=== PATIENT | male | born 1970 | race Caucasian/White ===

== ENCOUNTER 2016-08-05 01:43 | Emergency (ER) | payer MEDICARE, MEDICAID ==
[2016-08-05] MEDS ORDERED: Sodium Chloride 0.9% 10 ML Syringe FLUSH PRN (01:53)
[2016-08-05] MEDS ORDERED: Sodium Chloride 0.9% 1,000 ML IV ONE (01:55)
[2016-08-05] MEDS ORDERED: Ondansetron 4 MG/2 ML SDV IVPUSH ONE (02:01)
[2016-08-05] MEDS ORDERED: Promethazine 25 MG/ML SDV IM ONE (02:02)
[2016-08-05] MEDS ORDERED: Scopolamine 1.5 MG Transdermal Patch TRDERM ONE (02:03)
--- NOTE | 2016-08-05 02:23 | EDM.PDOC ---
ED HPI GENERAL MEDICAL PROBLEM - General Chief Complaint: Neurological Problem Stated Complaint: Dizziness Time Seen by Provider: 08/05/16 01:53 Source of Information: Reports: Patient, EMS Notes Reviewed, RN, RN Notes Reviewed History Limitations: Reports: No Limitations - History of Present Illness INITIAL COMMENTS - FREE TEXT/NARRATIVE: Patient is brought to the ED at [facility] complaining of severe dizziness that started around 11pm this evening. Patient states he was lying on his sofa watching tv. When he tried to get up from the sofa, the dizziness started. He feels as thought the room is spinning. He feels slightly nauseated and has photophobia. No vomiting. No diarrhea. Patient states he thought his dizziness may be due to low blood sugar, so he consumed a tablespoon of sugar and drank a regular Sprite. Patient denies any head injury or trauma. Onset: Today Onset Date: 08/04/16 Onset Time: 23:00 Duration: Constant Location: Reports: Head - Related Data Allergies Allergy/AdvReac Type Severity Reaction Status Date / Time No Known Allergies Allergy Verified 08/05/16 01:51 Home Meds: Home Meds Apixaban [Eliquis] 5 mg PO BID 08/05/16 [History] Insulin Aspart [NovoLOG] 30 unit SUBCUT TID 08/05/16 [History] Insulin Aspart [Novolog] 6 - 16 unit SQ QID 08/05/16 [History] Insulin Detemir [Levemir] 40 units SUBCUT BEDTIME 08/05/16 [History] Lisinopril 10 mg PO DAILY 08/05/16 [History] Past Medical History Cardiovascular History: Reports: Hypertension Endocrine/Metabolic History: Reports: Diabetes, Type I, Obesity/BMI 30+ Social & Family History - Family History Family Medical History: Noncontributory - Caffeine Use Caffeine Use: Reports: Coffee, Soda - Living Situation & Occupation Living situation: Reports: Single Occupation: Disabled ED ROS GENERAL - Review of Systems Review Of Systems: See Below Constitutional: Denies: Fever, Chills, Weakness HEENT: Reports: Vertigo Respiratory: Denies: Shortness of Breath, Cough Cardiovascular: Denies: Chest Pain, Palpitations GI/Abdominal: Reports: Nausea. Denies: Abdominal Pain, Diarrhea, Vomiting Skin: Reports: No Symptoms Neurological: Reports: Dizziness. Denies: Headache, Numbness, Paresthesia, Tingling ED EXAM, NEURO - Physical Exam Exam: See Below Exam Limited By: No Limitations General Appearance: Alert, No Apparent Distress, Anxious Eye Exam: Bilateral Eye: EOMI, Normal Inspection, PERRL Ears: Normal External Exam, Normal Canal, Normal TMs Head Exam: Atraumatic, Normocephalic Neck: Supple Respiratory/Chest: No Respiratory Distress, Lungs Clear, Normal Breath Sounds Cardiovascular: Regular Rate, Rhythm GI/Abdominal: Soft, Non-Tender, Abnormal Bowel Sounds (Hyperactive) Neurological: Alert, Oriented x 3 Skin Exam: Warm, Dry, Intact, Normal Color, No Rash Course - Vital Signs Last Recorded V/S: Last Vital Signs Temp 36.9 C 08/05/16 01:51 Pulse 70 08/05/16 02:26 Resp 18 08/05/16 02:26 BP 160/86 H 08/05/16 02:26 Pulse Ox 99 08/05/16 02:26 - Orders/Labs/Meds Orders: Active Orders 24 hr Category Date Time Status EKG 12 Lead [EKG Documentation Completion] [RC] STAT Care 08/05/16 01:56 Active Head wo Cont [CT] Stat Exams 08/05/16 01:55 Taken Sodium Chloride 0.9% [Saline Flush] Med 08/05/16 01:53 Active 10 ml FLUSH ASDIRECTED PRN Peripheral IV Insertion Adult [OM.PC] Routine Oth 08/05/16 01:53 Ordered Medication Orders Sodium Chloride (Saline Flush) 10 ml FLUSH ASDIRECTED PRN PRN Reason: Keep Vein Open Last Admin: 08/05/16 02:09 Dose: 10 ml Labs: Laboratory Tests 08/05/16 08/05/16 Range/Units 02:19 02:19 WBC 5.2 (4.0-10.0) x10^3/uL RBC 5.35 (4.5-6.0) x10^6/uL Hgb 16.7 (14.0-18.0) g/dL Hct 45.3 (40.0-52.0) % MCV 84.7 (78.0-93.0) fL MCH 31.2 (26.0-32.0) pg MCHC 36.9 H (32.0-36.0) g/dL RDW Coeff of Shalonda 12.1 (10.0-15.0) % Plt Count 199 (130-400) x10^3/uL Neut % (Auto) 74.8 (50.0-80.0) % Lymph % (Auto) 14.5 L (25.0-50.0) % [place] % (Auto) 9.7 (2.0-11.0) % Eos % (Auto) 0.2 (0.0-4.0) % Baso % (Auto) 0.8 (0.2-1.2) % ESR 6 (0-16) mm/hr Sodium 136 (136-145) mmol/L Potassium 3.8 (3.5-5.1) mmol/L Chloride 99 (98-107) mmol/L Carbon Dioxide 25 (21-32) mmol/L BUN 12 (7-18) mg/dL Creatinine 1.1 (0.70-1.30) mg/dL Est Cr Clr Drug Dosing 91.12 mL/min Estimated GFR (MDRD) > 60 Glucose 414 H* (74-106) mg/dL Calcium 9.0 (8.5-10.1) mg/dL Creatine Kinase 66 (39-308) U/L Troponin I < 0.017 (<=0.056) ng/mL C-Reactive Protein < 0.2 (<=0.9) mg/dL Meds: Medications Generic Name Dose Route Start Last Admin Trade Name Dipak PRN Reason Stop Dose Admin Sodium Chloride 10 ml 08/05/16 01:53 08/05/16 02:09 Saline Flush FLUSH 10 ml ASDIRECTED PRN Administration Keep Vein Open Discontinued Medications Generic Name Dose Route Start Last Admin Trade Name Dipak PRN Reason Stop Dose Admin Sodium Chloride 1,000 mls @ 999 mls/hr 08/05/16 01:55 08/05/16 02:08 Normal Saline IV 08/05/16 02:55 999 mls/hr ONETIME ONE Administration Ondansetron HCl 4 mg 08/05/16 02:01 08/05/16 02:10 Zofran IVPUSH 08/05/16 02:02 4 mg ONETIME ONE Administration Promethazine HCl 25 mg 08/05/16 02:02 08/05/16 02:13 Phenergan IM 08/05/16 02:03 25 mg ONETIME ONE Administration Scopolamine 1.5 mg 08/05/16 02:03 08/05/16 02:22 Transderm-Scop TRDERM 08/05/16 02:04 1.5 mg ONETIME ONE Administration - Radiology Interpretation Free Text/Narrative:: CT Head: No acute findings - see scanned report in EMR CT Results Date: 08/05/16 CT Results Time: 03:39 Departure - Departure Time of Disposition: 03:49 Disposition: Home, Self-Care 01 Condition: Good Clinical Impression: Dizziness - Discharge Information Instructions: Dizziness Referrals: Stefanie Kumar NP [Primary Care Provider] - Forms: ED Department Discharge Additional Instructions: 1. Stay well hydrated and rest 2. Keep your blood sugars under control 3. Make appointment to see your Primary, you may need additional testing - Problem List Review Problem List Initiated/Reviewed/Updated: Yes - My Orders Last 24 Hours: My Active Orders 08/05/16 01:53 Sodium Chloride 0.9% [Saline Flush] 10 ml FLUSH ASDIRECTED PRN Peripheral IV Insertion Adult [OM.PC] Routine 08/05/16 01:55 Head wo Cont [CT] Stat 08/05/16 01:56 EKG 12 Lead [EKG Documentation Completion] [RC] STAT - Assessment/Plan Last 24 Hours: My Active Orders 08/05/16 01:53 Sodium Chloride 0.9% [Saline Flush] 10 ml FLUSH ASDIRECTED PRN Peripheral IV Insertion Adult [OM.PC] Routine 08/05/16 01:55 Head wo Cont [CT] Stat 08/05/16 01:56 EKG 12 Lead [EKG Documentation Completion] [RC] STAT
[2016-08-05 02:36] VITALS: BP 160/86
[2016-08-05 03:12] LABS: CHLORIDE,CL 99 mmol/L (98-107); SODIUM,NA 136 mmol/L (136-145)
== END 2016-08-05 04:12 | disposition home or self-care (01) ==
LOC: VM.ED 01:43
DX: R42 Dizziness and giddiness (principal); I10 Essential (primary) hypertension; E10.9 Type 1 diabetes mellitus without complications; E66.9 Obesity, unspecified; Z79.899 Other long term (current) drug therapy
CPT/HCPCS: 36415; 70450; 80048; 82550; 84484; 85025; 85652; 86140; 93005; 96365; 96366; 96372; 96375; 99285; A9270; J2405; J2550; J7030; J7050; 99284-GF

== ENCOUNTER 2017-10-15 06:05 | Emergency (ER) | payer MEDICARE, MEDICAID ==
[2017-10-15] MEDS ORDERED: Sodium Chloride 0.9% 10 ML Syringe FLUSH PRN (06:19)
[2017-10-15] MEDS ORDERED: Ketorolac 30 MG/ML SDV IVPUSH ONE (06:25)
[2017-10-15] MEDS: Sodium Chloride 0.9% 1,000 ML IV ONE (06:58)
[2017-10-15] MEDS: Ampicillin/Sulbactam Na 3 GM Vial IV ONE (07:07)
[2017-10-15 07:27] LABS: CHLORIDE,CL 104 mmol/L (98-107); SODIUM,NA 139 mmol/L (136-145)
[2017-10-15 07:28] LABS: ANION GAP 11.6 mmol/L (10-20)
[2017-10-15] MEDS: HYDROmorphone 1 MG/ML Syringe IVPUSH ONE (08:15)
[2017-10-15] MEDS: methylPREDNISolone Sodium Succinate 125 MG/2 ML SDV IVPUSH ONE (08:21)
[2017-10-15] MEDS: Insulin Regular, Human 100 Units/ML 3 ML Vial IVPUSH ONE (08:26)
[2017-10-15 08:30] VITALS: BP 178/98
[2017-10-15] MEDS: Iopamidol 612 MG/ML 100 ML Bottle IVPUSH ONE (08:46)
--- NOTE | 2017-10-15 10:18 | EDM.PDOC ---
ED HPI GENERAL MEDICAL PROBLEM - General Chief Complaint: ENT Problem Stated Complaint: Swollen throat, pain, difficulty swallowing Time Seen by Provider: 10/15/17 06:05 Source of Information: Reports: Patient History Limitations: Reports: No Limitations - History of Present Illness INITIAL COMMENTS - FREE TEXT/NARRATIVE: Pt. presents to ER with complaints of several day history of severe sore throat , difficulty swallowing, and since early this morning, sensation of intermittent airway compromise when lying supine. States that he has noted severe cervical lymphadenopathy. Denies any fever or chills. No chest pain or shortness of breath. Pt. states that he has taken several doses of keflex (that he hadn't finished from a pervious prescription) which has not been of any help. He denies any nausea, vomiting, or diarrhea. Complains of some headache and body aches. He has a history poorly controlled type II DM. Onset Date: 10/11/17 Location: Reports: Head, Neck Quality: Reports: Ache, Burning Severity: Severe throat Pain Score (Numeric/FACES): 10 - Related Data Allergies Allergy/AdvReac Type Severity Reaction Status Date / Time No Known Allergies Allergy Verified 10/15/17 06:12 Home Meds: Home Meds Apixaban [Eliquis] 5 mg PO BID 08/05/16 [History] Insulin Aspart [NovoLOG] 30 unit SUBCUT TID 08/05/16 [History] Insulin Aspart [Novolog] 6 - 16 unit SQ ASDIRECTED 08/05/16 [History] Insulin Detemir [Levemir] 40 units SUBCUT BEDTIME 08/05/16 [History] Lisinopril 10 mg PO DAILY 08/05/16 [History] Gabapentin [Neurontin] 100 mg TID 10/15/17 [History] Loratadine 10 mg DAILY 10/15/17 [History] Omeprazole 20 mg DAILY 10/15/17 [History] Simvastatin 10 mg DAILY 10/15/17 [History] Past Medical History Cardiovascular History: Reports: Hypertension Neurological History: Reports: Vertigo Endocrine/Metabolic History: Reports: Diabetes, Type I, Obesity/BMI 30+ Social & Family History - Family History Family Medical History: Noncontributory - Caffeine Use Caffeine Use: Reports: Coffee, Soda - Living Situation & Occupation Living situation: Reports: Single Occupation: Disabled ED ROS GENERAL - Review of Systems Review Of Systems: See Below Constitutional: Reports: No Symptoms HEENT: Reports: Throat Pain, Throat Swelling Respiratory: Reports: Other (see hpi) Cardiovascular: Reports: No Symptoms Endocrine: Reports: No Symptoms GI/Abdominal: Reports: No Symptoms : Reports: No Symptoms Musculoskeletal: Reports: Muscle Pain Skin: Reports: No Symptoms Neurological: Reports: No Symptoms Psychiatric: Reports: No Symptoms Hematologic/Lymphatic: Reports: No Symptoms Immunologic: Reports: No Symptoms ED EXAM, GENERAL - Physical Exam Exam: See Below Exam Limited By: No Limitations General Appearance: Alert, WD/WN, Moderate Distress Eye Exam: Bilateral Eye: EOMI, PERRL Nose: Normal Inspection, Normal Mucosa Throat/Mouth: Inflammation, Other (Trismus present. Severe edema to hypopharynx. No obvious unilateral edema noted-appears symmetrical, but evaluation of hypopharynx is limited due to trismus and discomfort) Neck: Limited Range of Motion, Lymphadenopathy (L), Lymphadenopathy (R), Tender Lateral, Tender Midline Respiratory/Chest: No Respiratory Distress, Lungs Clear, Normal Breath Sounds, No Accessory Muscle Use, Chest Non-Tender Cardiovascular: Normal Peripheral Pulses, Regular Rate, Rhythm, No Edema, No Gallop, No JVD, No Murmur, No Rub Peripheral Pulses: 4+: Radial (R) GI/Abdominal: Normal Bowel Sounds, Soft, Non-Tender, No Organomegaly, No Distention, No Abnormal Bruit, No Mass (Male) Exam: Deferred Rectal (Males) Exam: Deferred Back Exam: Normal Inspection, Full Range of Motion, NT Extremities: Normal Inspection, Normal Range of Motion, Non-Tender Neurological: Alert, Oriented, CN II-XII Intact, Normal Cognition, Normal Gait, Normal Reflexes, No Motor/Sensory Deficits Psychiatric: Normal Affect, Normal Mood Skin Exam: Warm, Dry, Intact, Normal Color, No Rash Lymphatic: Adenopathy Course - Vital Signs Last Recorded V/S: Last Vital Signs Temp 37.0 C 10/15/17 06:05 Pulse 107 H 10/15/17 08:28 Resp 18 10/15/17 08:28 BP 178/98 H 10/15/17 08:28 Pulse Ox 94 L 10/15/17 08:28 - Orders/Labs/Meds Orders: Active Orders 24 hr Category Date Time Status Blood Glucose Check, Bedside [RC] ONETIME Care 10/15/17 10:09 Ordered Soft Tissue Neck w Cont [CT] Stat Exams 10/15/17 07:21 Taken CULTURE BLOOD [BC] Stat Lab 10/15/17 06:52 Received CULTURE BLOOD [] Stat Lab 10/15/17 06:58 Received CULTURE STREP A CONFIRMATION [] Stat Lab 10/15/17 06:45 Results STREP SCRN A RAPID W CULT CONF [] Stat Lab 10/15/17 06:45 Results Sodium Chloride 0.9% [Saline Flush] Med 10/15/17 06:19 Active 10 ml FLUSH ASDIRECTED PRN Blood Culture x2 Reflex Set [OM.PC] Stat Oth 10/15/17 06:20 Ordered Peripheral IV Insertion Adult [OM.PC] Routine Oth 10/15/17 06:20 Ordered Medication Orders Sodium Chloride (Saline Flush) 10 ml FLUSH ASDIRECTED PRN PRN Reason: Keep Vein Open Labs: Laboratory Tests 10/15/17 10/15/17 10/15/17 Range/Units 06:52 06:52 06:52 WBC 9.2 (4.0-10.0) x10^3/uL RBC 5.37 (4.5-6.0) x10^6/uL Hgb 16.9 (14.0-18.0) g/dL Hct 46.6 (40.0-52.0) % MCV 86.8 (78.0-93.0) fL MCH 31.5 (26.0-32.0) pg MCHC 36.3 H (32.0-36.0) g/dL RDW Coeff of Shalonda 12.5 (10.0-15.0) % Plt Count 187 (130-400) x10^3/uL Neut % (Auto) 74.7 (50.0-80.0) % Lymph % (Auto) 12.7 L (25.0-50.0) % [place] % (Auto) 11.5 H (2.0-11.0) % Eos % (Auto) 0.8 (0.0-4.0) % Baso % (Auto) 0.3 (0.2-1.2) % PT 9.9 (9.6-11.4) SEC INR 0.9 L (2.0-3.5) Sodium 139 (136-145) mmol/L Potassium 3.6 (3.5-5.1) mmol/L Chloride 104 (98-107) mmol/L Carbon Dioxide 27 (21-32) mmol/L Anion Gap 11.6 (10-20) mmol/L BUN 8 (7-18) mg/dL Creatinine 0.8 (0.70-1.30) mg/dL Est Cr Clr Drug Dosing 123.94 mL/min Estimated GFR (MDRD) > 60 Glucose 331 H (74-106) mg/dL Lactic Acid (0.4-2.0) mmol/L Calcium 8.4 L (8.5-10.1) mg/dL Corrected Calcium 8.96 (8.5-10.1) mg/dL Phosphorus 2.5 L (2.6-4.7) mg/dL Magnesium 1.7 L (1.8-2.4) mg/dL Total Bilirubin 1.0 (0.2-1.0) mg/dL AST 10 L (15-37) U/L ALT 35 (16-63) U/L Alkaline Phosphatase 68 (46-116) U/L C-Reactive Protein 4.2 H (<=0.9) mg/dL Total Protein 7.3 (6.4-8.2) g/dL Albumin 3.3 L (3.4-5.0) g/dL Globulin 4.0 Albumin/Globulin Ratio 0.83 08//18 Range/Units 06:52 WBC (4.0-10.0) x10^3/uL RBC (4.5-6.0) x10^6/uL Hgb (14.0-18.0) g/dL Hct (40.0-52.0) % MCV (78.0-93.0) fL MCH (26.0-32.0) pg MCHC (32.0-36.0) g/dL RDW Coeff of Shalonda (10.0-15.0) % Plt Count (130-400) x10^3/uL Neut % (Auto) (50.0-80.0) % Lymph % (Auto) (25.0-50.0) % [place] % (Auto) (2.0-11.0) % Eos % (Auto) (0.0-4.0) % Baso % (Auto) (0.2-1.2) % PT (9.6-11.4) SEC INR (2.0-3.5) Sodium (136-145) mmol/L Potassium (3.5-5.1) mmol/L Chloride (98-107) mmol/L Carbon Dioxide (21-32) mmol/L Anion Gap (10-20) mmol/L BUN (7-18) mg/dL Creatinine (0.70-1.30) mg/dL Est Cr Clr Drug Dosing mL/min Estimated GFR (MDRD) Glucose (74-106) mg/dL Lactic Acid 1.2 (0.4-2.0) mmol/L Calcium (8.5-10.1) mg/dL Corrected Calcium (8.5-10.1) mg/dL Phosphorus (2.6-4.7) mg/dL Magnesium (1.8-2.4) mg/dL Total Bilirubin (0.2-1.0) mg/dL AST (15-37) U/L ALT (16-63) U/L Alkaline Phosphatase (46-116) U/L C-Reactive Protein (<=0.9) mg/dL Total Protein (6.4-8.2) g/dL Albumin (3.4-5.0) g/dL Globulin Albumin/Globulin Ratio Meds: Medications Generic Name Dose Route Start Last Admin Trade Name Dipak PRN Reason Stop Dose Admin Sodium Chloride 10 ml 10/15/17 06:19 Saline Flush FLUSH ASDIRECTED PRN Keep Vein Open Discontinued Medications Generic Name Dose Route Start Last Admin Trade Name Morrisq PRN Reason Stop Dose Admin Ampicillin Sodium/Sulbactam Sodium 3 gm 10/15/17 06:21 10/15/17 07:07 Unasyn IV 10/15/17 06:22 3 gm ONETIME ONE Administration Hydromorphone HCl 1 mg 10/15/17 08:02 10/15/17 08:15 Dilaudid IVPUSH 10/15/17 08:03 0.5 mg ONETIME ONE Administration Sodium Chloride 1,000 mls @ 1,000 mls/hr 10/15/17 06:21 10/15/17 06:58 Normal Saline IV 10/15/17 07:20 1,000 mls/hr .BOLUS ONE Administration Insulin Human Regular 10 unit 10/15/17 08:03 10/15/17 08:26 Humulin R IVPUSH 10/15/17 08:04 10 units ONETIME ONE Administration Iopamidol 100 ml 10/15/17 08:19 10/15/17 08:46 Isovue-300 (61%) IVPUSH 10/15/17 08:20 100 ml ONETIME ONE Administration Ketorolac Tromethamine 30 mg 10/15/17 06:25 Toradol IVPUSH 10/15/17 06:26 ONETIME ONE Methylprednisolone Sodium Succinate 125 mg 10/15/17 08:00 10/15/17 08:21 Solu-Medrol IVPUSH 10/15/17 08:01 125 mg ONETIME ONE Administration - Radiology Interpretation Free Text/Narrative:: CT soft tissue neck reveals R sided peritonsillar abscess vs. early epiglottis. Departure - Departure Time of Disposition: 10:26 Disposition: DC/[facility]fer to [facility] 02 Clinical Impression: Peritonsillar abscess, Epiglottitis - Discharge Information Referrals: PCP,Unobtain [Primary Care Provider] - - My Orders Last 24 Hours: My Active Orders 10/15/17 06:19 Sodium Chloride 0.9% [Saline Flush] 10 ml FLUSH ASDIRECTED PRN 10/15/17 06:20 Blood Culture x2 Reflex Set [OM.PC] Stat Peripheral IV Insertion Adult [OM.PC] Routine 10/15/17 06:45 CULTURE STREP A CONFIRMATION [RM] Stat STREP SCRN A RAPID W CULT CONF [RM] Stat 10/15/17 06:52 CULTURE BLOOD [BC] Stat 10/15/17 06:58 CULTURE BLOOD [BC] Stat 10/15/17 07:21 Soft Tissue Neck w Cont [CT] Stat 10/15/17 10:09 Blood Glucose Check, Bedside [RC] ONETIME - Assessment/Plan Last 24 Hours: My Active Orders 10/15/17 06:19 Sodium Chloride 0.9% [Saline Flush] 10 ml FLUSH ASDIRECTED PRN 10/15/17 06:20 Blood Culture x2 Reflex Set [OM.PC] Stat Peripheral IV Insertion Adult [OM.PC] Routine 10/15/17 06:45 CULTURE STREP A CONFIRMATION [RM] Stat STREP SCRN A RAPID W CULT CONF [RM] Stat 10/15/17 06:52 CULTURE BLOOD [BC] Stat 10/15/17 06:58 CULTURE BLOOD [BC] Stat 10/15/17 07:21 Soft Tissue Neck w Cont [CT] Stat 10/15/17 10:09 Blood Glucose Check, Bedside [RC] ONETIME Plan: Pt. will be transferred to [facility]. Dr. Scales is accepting. Pt. was given a dose of Unasyn and solu medrol 125mg IV. He was also given 10mg of regular insulin IV for his elevated blood sugar. He will be transferred via [facility].
== END 2017-10-15 11:00 | disposition short-term general hospital (02) ==
LOC: VM.ED 06:05
DX: J36 Peritonsillar abscess (principal); J05.10 Acute epiglottitis without obstruction
CPT/HCPCS: 36415; 70491; 80053; 82962; 83605; 83735; 84100; 85025; 85610; 86140; 87040; 87081; 87880; 96361; 96365; 96375; 99285; J0295; J1170; J1815; J2930; J7030; Q9967; 99284-GF

== ENCOUNTER 2018-11-25 13:20 | Emergency (ER) | payer MEDICARE, MEDICAID ==
[2018-11-25 13:47] VITALS: BP 149/103; PULSE 111
[2018-11-25 14:29] LABS: CHLORIDE,CL 99 mmol/L (54-184); SODIUM,NA 138 mmol/L (69-191)
[2018-11-25 14:32] LABS: ANION GAP 14.5 mmol/L (10-20)
--- NOTE | 2018-11-25 14:36 | EDM.PDOC ---
ED HPI GENERAL MEDICAL PROBLEM - General Chief Complaint: Lower Extremity Injury/Pain Stated Complaint: L FOOT SWOLLEN, INFECTION Time Seen by Provider: 11/25/18 14:10 Source of Information: Reports: Patient - History of Present Illness INITIAL COMMENTS - FREE TEXT/NARRATIVE: Patient presents to ER today with concerns of ulcer to the bottom of his left foot patient thinks it may have been there for last couple days but really unsure states his daughter noticed it this morning. States he has real bad diabetic neuropathy and does not check his feet nor can he feel anything on the soles of his feet. He denies any increased redness outside of the ulcer no pain states it has been weeping a little bit. He has been diabetic for over 20 years now uncontrolled he states Patient has no other complaints at this time says he feels okay overall he denies any fever or chills nausea or vomiting Duration: Day(s): Location: Reports: Lower Extremity, Left Improves with: Reports: None Worsens with: Reports: None Associated Symptoms: Reports: No Other Symptoms Left Foot Pain Score (Numeric/FACES): 1 - Related Data Allergies Allergy/AdvReac Type Severity Reaction Status Date / Time No Known Allergies Allergy Verified 11/25/18 13:39 Home Meds: Home Meds Apixaban [Eliquis] 5 mg PO BID 08/05/16 [History] Insulin Aspart [NovoLOG] 60 unit SUBCUT DAILY 08/05/16 [History] Insulin Detemir [Levemir] 80 units SUBCUT BEDTIME 08/05/16 [History] Lisinopril 10 mg PO DAILY 08/05/16 [History] Omeprazole 20 mg PO DAILY 10/15/17 [History] Liraglutide [Victoza] 1.8 units SQ DAILY 11/25/18 [History] Past Medical History Cardiovascular History: Reports: High Cholesterol, Hypertension, [place] Neurological History: Reports: Vertigo Endocrine/Metabolic History: Reports: Diabetes, Type II, Obesity/BMI 30+ Social & Family History - Family History Family Medical History: Noncontributory - Tobacco Use Smoking Status *Q: Former Smoker Used Tobacco, but Quit: Yes Month/Year Tobacco Last Used: 2017 - Caffeine Use Caffeine Use: Reports: Coffee, Soda - Living Situation & Occupation Living situation: Reports: Single Occupation: Disabled Review of Systems - Review of Systems Review Of Systems: See Below Constitutional: Reports: No Symptoms. Denies: Chills, Diaphoresis, Fever, Weakness Eyes: Reports: No Symptoms Ears: Reports: No Symptoms Nose: Reports: No Symptoms Mouth/Throat: Reports: No Symptoms Respiratory: Reports: No Symptoms Cardiovascular: Reports: No Symptoms GI/Abdominal: Reports: No Symptoms Genitourinary: Reports: No Symptoms Musculoskeletal: Reports: No Symptoms. Denies: Foot Pain, Joint Pain, Joint Swelling, Muscle Pain, Muscle Stiffness Skin: Reports: No Symptoms Neurological: Reports: No Symptoms Psychiatric: Reports: No Symptoms ED EXAM, GENERAL - Physical Exam Exam: See Below Exam Limited By: No Limitations General Appearance: Alert, WD/WN, No Apparent Distress Nose: Normal Inspection, Normal Mucosa Throat/Mouth: Normal Inspection, Normal Lips, Normal Teeth, Normal Gums, Normal Oropharynx, Normal Voice, No Airway Compromise Neck: Normal Inspection, Supple, Non-Tender, Full Range of Motion Respiratory/Chest: No Respiratory Distress, Lungs Clear, Normal Breath Sounds, No Accessory Muscle Use Cardiovascular: Normal Peripheral Pulses, Regular Rate, Rhythm, No Edema, No Gallop, No JVD GI/Abdominal: Normal Bowel Sounds, Soft, Non-Tender, No Organomegaly, No Distention Extremities: Normal Inspection, Normal Range of Motion, Non-Tender, Other (Exam of the left foot 2 cm x 1.25 cm approximately 0.75 mm deep to the left heel with mild clear drainage from the centersuperficial signs or symptoms of secondary cellulitis there is mild erythema around the outside of the ulcer which is superficial and there is no streaking no signs of lymphangitis patient has full range of motion and neurovascularly intact there is no edema over the calf or redness or calor) Neurological: Alert, Oriented, CN II-XII Intact, Normal Cognition Psychiatric: Normal Affect, Normal Mood Skin Exam: Warm, Dry, Normal Color, No Rash. No: Intact Course - Vital Signs Text/Narrative:: CBC 10.6 glucose 311 CRP of 5.9 Patient has no known drug allergies wound culture obtained Patient will be given clindamycin 900 mg IM and started on Clinda 300 tid x 10 days patient will be followed up in office tomorrow Last Recorded V/S: Last Vital Signs Temp 37.2 C 11/25/18 13:43 Pulse 111 H 11/25/18 13:43 Resp 19 11/25/18 13:43 BP 149/103 H 10/06/19 13:43 Pulse Ox 97 11/25/18 13:43 - Orders/Labs/Meds Orders: Active Orders 24 hr Category Date Time Status Clindamycin Phosphate [Cleocin] Med 11/25/18 16:00 Ordered 900 mg IM Q8HR Medication Orders Clindamycin Phosphate (Cleocin) 900 mg IM Q8HR [facility] Labs: Laboratory Tests 11/25/18 11/25/18 Range/Units 14:06 14:06 WBC 10.6 H (4.0-10.0) x10^3/uL RBC 5.20 (4.5-6.0) x10^6/uL Hgb 15.7 (14.0-18.0) g/dL Hct 44.9 (40.0-52.0) % MCV 86.3 (78.0-93.0) fL MCH 30.2 (26.0-32.0) pg MCHC 35.0 (32.0-36.0) g/dL RDW Coeff of Shalonda 12.2 (10.0-15.0) % Plt Count 309 D (130-400) x10^3/uL Neut % (Auto) 70.9 (50.0-80.0) % Lymph % (Auto) 17.3 L (25.0-50.0) % [place] % (Auto) 10.1 (2.0-11.0) % Eos % (Auto) 1.0 (0.0-4.0) % Baso % (Auto) 0.7 (0.2-1.2) % Sodium 138 (69-191) mmol/L Potassium 4.5 (1.5-9.9) mmol/L Chloride 99 (54-184) mmol/L Carbon Dioxide 29 (21-32) mmol/L Anion Gap 14.5 (10-20) mmol/L BUN 18 (7-18) mg/dL Creatinine 1.1 (0.70-1.30) mg/dL Est Cr Clr Drug Dosing 90.80 mL/min Estimated GFR (MDRD) > 60 Glucose 311 H (74-106) mg/dL Calcium 8.8 (8.5-10.1) mg/dL C-Reactive Protein 5.9 H (<=0.9) mg/dL Meds: Medications Generic Name Dose Route Start Last Admin Trade Name Dipak PRN Reason Stop Dose Admin Clindamycin Phosphate 900 mg 11/25/18 16:00 Cleocin IM Q8HR ZA Discontinued Medications Generic Name Dose Route Start Last Admin Trade Name Dipak PRN Reason Stop Dose Admin Clindamycin HCl 1 packet 11/25/18 14:41 Take Home: Clindamycin Hcl 150 Mg, 6 Cap Pack PO 11/25/18 14:42 ONETIME ONE Departure - Departure Time of Disposition: 14:50 Disposition: Home, Self-Care 01 Condition: Good Clinical Impression: Diabetic foot ulcer - Discharge Information Referrals: Stefnaie Kumar NP [Primary Care Provider] - Forms: ED Department Discharge Additional Instructions: Take the clindamycin antibiotic as directed 300 mg every 8 hours for 10 days Follow-up with her primary care provider in the morning and have them set up an appointment with wound care or return to the emergency room Return to the emergency room if anything gets worse or changes - My Orders Last 24 Hours: My Active Orders 11/25/18 16:00 Clindamycin Phosphate [Cleocin] 900 mg IM Q8HR - Assessment/Plan Last 24 Hours: My Active Orders 11/25/18 16:00 Clindamycin Phosphate [Cleocin] 900 mg IM Q8HR
[2018-11-25] MEDS ORDERED: Take Home: Clindamycin HCl 150 MG Cap, 6 Cap Pack PO ONE (14:41)
[2018-11-25] MEDS ORDERED: Clindamycin Phosphate 900 MG/6 ML SDV IM SCH (16:00)
== END 2018-11-25 15:04 | disposition home or self-care (01) ==
LOC: VM.ED 13:20
DX: E11.621 Type 2 diabetes mellitus with foot ulcer (principal); I25.2 Old myocardial infarction; I10 Essential (primary) hypertension; E78.00 Pure hypercholesterolemia, unspecified; E66.9 Obesity, unspecified; Z68.41 Body mass index [BMI] 40.0-44.9, adult; Z79.4 Long term (current) use of insulin; Z79.899 Other long term (current) drug therapy; Z87.891 Personal history of nicotine dependence
CPT/HCPCS: 36415; 80048; 85025; 86140; 87070; 87077; 96372; 99283; A9270; J3490

== ENCOUNTER 2019-04-18 18:23 | Emergency (ER) | payer MEDICARE, MEDICAID ==
[2019-04-18] MEDS ORDERED: Ketorolac 30 MG/ML SDV IM ONE (18:38)
[2019-04-18] MEDS ORDERED: LORazepam 2 MG/ML SDV IM ONE (18:39)
[2019-04-18] MEDS ORDERED: Metoclopramide 10 MG/2 ML SDV IM ONE (18:39)
[2019-04-18] MEDS ORDERED: amLODIPine 5 MG Tab PO ONE (19:28)
[2019-04-18] MEDS ORDERED: Lisinopril 10 MG Tab PO ONE (19:28)
--- NOTE | 2019-04-18 19:28 | CT ---
[id number] CT/CT Head WO IV EXAM: CT Head WO IV CLINICAL DATA: HEADACHE. COMPARISON STUDY: 08/05/2016. FINDINGS: No intracranial hemorrhage, extra-axial fluid collection, mass, or acute ischemia. Soft tissues are unremarkable. Paranasal sinuses and mastoid air cells are clear. IMPRESSION: No acute intracranial findings. Zoran Mendez DO 04/18/19 1927 Thank you for allowing us to participate in the care of your patient.
[2019-04-18] MEDS ORDERED: Take Home: Sulfamethoxazole/Trimethoprim 800-160 MG Tab, 2 Tab Pack PO ONE (19:46)
[2019-04-18] MEDS ORDERED: Acetaminophen/HYDROcodone 325-10 MG Tab PO ONE (20:02)
[2019-04-18 20:18] VITALS: BP 177/103; PULSE 86
--- NOTE | 2019-04-18 20:27 | EDM.PDOC ---
ED HPI GENERAL MEDICAL PROBLEM - General Chief Complaint: Headache Stated Complaint: Headache Time Seen by Provider: 04/18/19 18:32 Source of Information: Reports: Patient History Limitations: Reports: No Limitations - History of Present Illness INITIAL COMMENTS - FREE TEXT/NARRATIVE: Pt. presents to ER with complaints of headache for several days, numbness in his hands and feet and around his lips, anxiety and complains that he is out of his blood pressure medication and needs it refilled. Pt. is type 2 diabetic and states that his blood sugars have been running in the 170-180 range. His is out of his lisinopril and amlodipine for his high blood pressure but states that he has been taking his insulin. He has a history of non-compliance with his medical care. He also complains of erythema surrounding his umbilicus that he has had for over a week as well. He denies any fever or chills. Pt. denies any unilateral weakness or paresthesia, difficulty with speech or ambulation. He complains of feeling anxious. He states that the headache is frontal in nature. He states that he has had headache like this occasionally in the past but infrequently. He has never been diagnosed with migraines in the past, or seen for headaches. he states that his blood pressure has been running high recently. He denies any chest pain or shortness of breath. No nausea, vomiting, or diarrhea. No melena, hematochezia, or hematemesis. Onset Date: 04/11/19 Duration: Constant, Getting Worse Location: Reports: Head, Generalized Quality: Reports: Ache Severity: Moderate Associated Symptoms: Reports: Headaches. Denies: Confusion, Chest Pain, Cough, cough w sputum, Diaphoresis, Fever/Chills, Loss of Appetite, Malaise, Nausea/ Vomiting, Rash, Seizure, Shortness of Breath, Syncope, Weakness Headache Pain Score (Numeric/FACES): 5 - Related Data Allergies Allergy/AdvReac Type Severity Reaction Status Date / Time No Known Allergies Allergy Verified 04/18/19 18:48 Home Meds: Home Meds Apixaban [Eliquis] 5 mg PO BID 08/05/16 [History] Insulin Aspart [NovoLOG] 30 unit SUBCUT TIDMEALS 08/05/16 [History] Insulin Detemir [Levemir] 40 units SUBCUT Q12H 06/16/17 [History] Lisinopril 10 mg PO DAILY 08/05/16 [History] Omeprazole 20 mg PO DAILY 10/15/17 [History] Aspirin [Halfprin] 81 mg PO DAILY 12/03/18 [History] FLUoxetine HCl [Prozac] 20 mg PO DAILY 12/03/18 [History] Gabapentin [Neurontin] 300 mg PO DAILY 12/03/18 [History] Multivitamin [Daily Multiple Vitamin] 1 each PO DAILY 12/03/18 [History] Past Medical History Cardiovascular History: Reports: High Cholesterol, Hypertension, [place] Neurological History: Reports: Vertigo Endocrine/Metabolic History: Reports: Diabetes, Type II, Obesity/BMI 30+ Social & Family History - Family History Family Medical History: Noncontributory - Tobacco Use Smoking Status *Q: Former Smoker Used Tobacco, but Quit: Yes Month/Year Tobacco Last Used: 2018 - Caffeine Use Caffeine Use: Reports: Coffee, Soda - Recreational Drug Use Recreational Drug Use: No - Living Situation & Occupation Living situation: Reports: Single Occupation: Disabled ED ROS GENERAL - Review of Systems Review Of Systems: See Below ED EXAM, GENERAL - Physical Exam Exam: See Below Course - Vital Signs Last Recorded V/S: Last Vital Signs Temp 36.1 C 04/18/19 18:32 Pulse 86 04/18/19 20:05 Resp 16 04/18/19 20:05 BP 177/103 H 04/18/19 20:05 Pulse Ox 95 04/18/19 18:32 - Orders/Labs/Meds Meds: Medications Discontinued Medications Generic Name Dose Route Start Last Admin Trade Name Dipak PRN Reason Stop Dose Admin Hydrocodone Bitart/Acetaminophen 1 tab 04/18/19 20:02 04/18/19 20:08 [place] 325-10 Mg PO 04/18/19 20:03 1 tab ONETIME ONE Administration Amlodipine Besylate 5 mg 04/18/19 19:28 04/18/19 19:32 Norvasc PO 04/18/19 19:29 5 mg ONETIME ONE Administration Ketorolac Tromethamine 30 mg 04/18/19 18:38 04/18/19 18:49 Toradol IM 04/18/19 18:39 30 mg ONETIME ONE Administration Lisinopril 10 mg 04/18/19 19:28 04/18/19 19:33 Prinivil PO 04/18/19 19:29 10 mg ONETIME ONE Administration Lorazepam 1 mg 04/18/19 18:39 04/18/19 18:49 Ativan IM 04/18/19 18:40 1 mg STAT ONE Administration Metoclopramide HCl 10 mg 04/18/19 18:39 04/18/19 18:49 Reglan IM 04/18/19 18:40 10 mg ONETIME ONE Administration Trimethoprim/Sulfamethoxazole 1 packet 04/18/19 19:46 04/18/19 19:59 Take Home: Sulfameth/Trimet 800-160mg, 2 Pack PO 04/18/19 19:47 1 packet ONETIME ONE Administration Departure - Departure Time of Disposition: 21:00 Disposition: Home, Self-Care 01 Clinical Impression: Hyperglycemia, Migraine - Discharge Information Instructions: Tension Headache, Adult, [id number], Hypertension Referrals: Stefanie Kumar ECOTHERAPIST [Primary Care Provider] - Forms: ED Department Discharge Additional Instructions: Lisinopril 10mg 1 tablet once daily Amlodipine 5mg 1 tablet once daily Bactrim DS 1 twice daily for 10 days Follow-up in clinic [facility] to restart all of your medications. Sepsis Event Note - Evaluation Sepsis Screening Result: No Definite Risk - Focused Exam Date Exam was Performed: 04/22/19 Time Exam was Performed: 05:54
== END 2019-04-18 20:12 | disposition home or self-care (01) ==
LOC: VM.ED 18:23
DX: G43.909 Migraine, unspecified, not intractable, without status migrainosus (principal); E11.65 Type 2 diabetes mellitus with hyperglycemia; E78.00 Pure hypercholesterolemia, unspecified; E11.9 Type 2 diabetes mellitus without complications; E66.9 Obesity, unspecified; Z68.41 Body mass index [BMI] 40.0-44.9, adult; Z79.4 Long term (current) use of insulin; Z79.899 Other long term (current) drug therapy; Z87.891 Personal history of nicotine dependence
CPT/HCPCS: 70450; 96372; 99284; A9270; J1885; J2060; J2765

== ENCOUNTER 2019-05-02 18:28 | Emergency (ER) | payer MEDICARE, MEDICAID ==
[2019-05-02] MEDS ORDERED: Sodium Chloride 0.9% 10 ML Syringe FLUSH PRN (18:35)
[2019-05-02] MEDS ORDERED: Insulin Regular, Human 100 Units/ML 3 ML Vial IVPUSH ONE (19:08)
[2019-05-02 19:21] LABS: BARBITURATE SCREEN,URINE NEGATIVE (NEGATIVE); BENZODIAZEPINES SCREEN,URINE NEGATIVE (NEGATIVE); EDDP,URINE SCREEN NEGATIVE (NEGATIVE); METHAMPHETAMINE SCREEN, URINE NEGATIVE (NEGATIVE); TCA SCREEN,URINE NEGATIVE (NEGATIVE); THC SCREEN,URINE 50 NG/ML NEGATIVE (NEGATIVE)
--- NOTE | 2019-05-02 19:29 | CR ---
[id number] RAD/RAD Chest PA or AP 1V EXAM: FRONTAL CHEST INDICATION: UNRESPONSIVE. COMPARISON: None. DISCUSSION: Endotracheal tube tip 4.5 cm above the noe. Low lung volumes with central vascular crowding and basilar atelectasis. No definite infiltrates, but pathology could be obscured by the low lung volumes. Normal heart size. IMPRESSION: 1. Low lung volumes. 2. Endotracheal tube tip in satisfactory position 4.5 cm above the noe. Addy Colby MD 05/02/19 1928 Thank you for allowing us to participate in the care of your patient.
[2019-05-02] MEDS ORDERED: Midazolam 1 MG/ML 2 ML SDV ONE (19:34)
[2019-05-02 19:41] LABS: ANION GAP 23.6 mmol/L (10-20); CHLORIDE,CL 94 mmol/L (98-107); SODIUM,NA 135 mmol/L (136-145)
--- NOTE | 2019-05-02 19:55 | EDM.PDOC ---
ED HPI GENERAL MEDICAL PROBLEM - General Time Seen by Provider: 05/02/19 18:28 Source of Information: Reports: Patient, Family History Limitations: Reports: Altered Mental Status - History of Present Illness INITIAL COMMENTS - FREE TEXT/NARRATIVE: Pt. was found unresponsive at his residence today. His 8 year old daughter states that she last talked to the patient at 2-3 AM. At that time, he was complaining of elevated blood glucose, fever, and weakness. He is currently being treated for cellulitis. His daughter states that he has been vomiting, complaining of weakness, and is generally not been feeling well. She went to school today. Late this afternoon, pt. was found to be responsive to painful stimuli and EMS was summoned. On their arrival, pt. was found to have a blood glucose reading "high". Pt. was transported emergently to ER with minimal treatment taking place during transport. Pt. has a history of non-compliance with taking his insulin as well as his antihypertensive agents. - Related Data Allergies Allergy/AdvReac Type Severity Reaction Status Date / Time No Known Allergies Allergy Verified 04/18/19 18:48 Home Meds: Home Meds Apixaban [Eliquis] 5 mg PO BID 08/05/16 [History] Insulin Aspart [NovoLOG] 30 unit SUBCUT TIDMEALS 08/05/16 [History] Insulin Detemir [Levemir] 40 units SUBCUT Q12H 08/05/16 [History] Lisinopril 10 mg PO DAILY 08/05/16 [History] Omeprazole 20 mg PO DAILY 10/15/17 [History] Aspirin [Halfprin] 81 mg PO DAILY 12/03/18 [History] FLUoxetine HCl [Prozac] 20 mg PO DAILY 12/03/18 [History] Gabapentin [Neurontin] 300 mg PO DAILY 12/03/18 [History] Multivitamin [Daily Multiple Vitamin] 1 each PO DAILY 12/03/18 [History] Past Medical History Cardiovascular History: Reports: High Cholesterol, Hypertension, [place] Neurological History: Reports: Vertigo Endocrine/Metabolic History: Reports: Diabetes, Type II, Obesity/BMI 30+ Social & Family History - Family History Family Medical History: Noncontributory - Caffeine Use Caffeine Use: Reports: Coffee, Soda - Living Situation & Occupation Living situation: Reports: Single Occupation: Disabled ED ROS GENERAL - Review of Systems Review Of Systems: Unable To Obtain Reason Not Obtained: unresponsive, intubated ED EXAM, GENERAL - Physical Exam Exam: See Below Exam Limited By: Respiratory Distress General Appearance: Obese, Other Eye Exam: Bilateral Eye: EOMI, Normal Fundi, Normal Inspection, Papilledema, PERRL Nose: Normal Inspection, Normal Mucosa, No Blood Throat/Mouth: Normal Lips, No Airway Compromise (intubated), Other (dark colored material in oral mucosa) Head: Atraumatic, Normocephalic Neck: Normal Inspection, Supple, Non-Tender, Full Range of Motion Respiratory/Chest: Other (tachypneic, hypoventilating on arrival to ER.) Cardiovascular: Normal Peripheral Pulses, Regular Rate, Rhythm, No Edema, No JVD , No Rub Peripheral Pulses: 4+: Radial (L) GI/Abdominal: Soft, No Mass, Other (large area of cellulitis/ulcer periumbilically) (Male) Exam: Normal Inspection, Circumcised Rectal (Males) Exam: Deferred Extremities: Normal Inspection, Non-Tender, No Pedal Edema, Normal Capillary Refill Neurological: Unresponsive Skin Exam: Warm, Dry, Other (numerous open/healing and ulcerated lesions to extremities and torso. Cellulitis noted to abdomen.) Course - Orders/Labs/Meds Orders: Active Orders 24 hr Category Date Time Status CULTURE BLOOD [BC] Stat Lab 05/02/19 18:37 Ordered CULTURE BLOOD [BC] Stat Lab 05/02/19 18:52 Received LACTIC ACID [CHEM] Stat Lab 05/02/19 18:52 Received Sodium Chloride 0.9% [Saline Flush] Med 05/02/19 18:35 Active 10 ml FLUSH ASDIRECTED PRN Blood Culture x2 Reflex Set [OM.PC] Stat Oth 05/02/19 18:36 Ordered Peripheral IV Insertion Adult [OM.PC] Routine Oth 05/02/19 18:36 Ordered Medication Orders Sodium Chloride (Saline Flush) 10 ml FLUSH ASDIRECTED PRN PRN Reason: Keep Vein Open Labs: Laboratory Tests 05/02/19 05/02/19 05/02/19 Range/Units 18:52 18:52 18:52 WBC 17.9 H (4.0-10.0) x10^3/uL RBC 5.84 (4.5-6.0) x10^6/uL Hgb 17.4 D (14.0-18.0) g/dL Hct 49.5 (40.0-52.0) % MCV 84.8 (78.0-93.0) fL MCH 29.8 (26.0-32.0) pg MCHC 35.2 (32.0-36.0) g/dL RDW Coeff of Shalonda 13.2 (10.0-15.0) % Plt Count 387 D (130-400) x10^3/uL Add Manual Diff Yes Neutrophils % (Manual) 85 H (50-80) % Band Neutrophils % 5 (0-6) % Lymphocytes % (Manual) 4 L (25-50) % Monocytes % (Manual) 4 (2-11) % Eosinophils % (Manual) 2 (0-4) % Hypersegmented Neuts Few H Platelet Estimate Adequate PT 11.2 (10.0-12.8) SEC INR 1.0 L (2.0-3.5) POC ABG pH (7.35-7.45) POC ABG pCO2 (35-45) mmHG POC ABG pO2 (80-105) mmHG POC ABG HCO3 (22-26) mmol/L POC ABG Total CO2 (23-27) mmol/L POC ABG O2 Sat (95-98) % POC ABG Base Excess (-2-3) mmol/L POC FiO2 Sodium 135 L (136-145) mmol/L Potassium 4.6 (3.5-5.1) mmol/L Chloride 94 L (98-107) mmol/L Carbon Dioxide 22 (21-32) mmol/L Anion Gap 23.6 H (10-20) mmol/L BUN 31 H (7-18) mg/dL Creatinine 2.2 H (0.70-1.30) mg/dL Est Cr Clr Drug Dosing TNP Estimated GFR (MDRD) 32 Glucose 594 H* (74-106) mg/dL Calcium 9.5 (8.5-10.1) mg/dL Corrected Calcium 10.70 H D (8.5-10.1) mg/dL Phosphorus 5.3 H (2.6-4.7) mg/dL Magnesium 1.5 L (1.8-2.4) mg/dL Total Bilirubin 0.9 (0.2-1.0) mg/dL AST 33 (15-37) U/L ALT 24 (16-63) U/L Alkaline Phosphatase 80 (46-116) U/L Troponin I 0.023 (<=0.056) ng/mL C-Reactive Protein 4.4 H (<=0.9) mg/dL Total Protein 7.4 (6.4-8.2) g/dL Albumin 2.5 L (3.4-5.0) g/dL Globulin 4.9 Albumin/Globulin Ratio 0.51 TSH, Ultra Sensitive 0.768 (0.358-3.74) uIU/mL POC Result Comm Urine Color (YELLOW) Urine Appearance (CLEAR) Urine pH (5.0-8.0) Ur Specific [place] Urine Protein (NEGATIVE) mg/dL Urine Glucose (UA) (NEGATIVE) mg/dL Urine Ketones (NEGATIVE) mg/dL Urine Occult Blood (NEGATIVE) Urine Nitrite (NEGATIVE) Urine Bilirubin (NEGATIVE) Urine Urobilinogen (0.2) EU/dL Ur Leukocyte Esterase (NEGATIVE) Urine RBC (NOT SEEN) /HPF Urine WBC (NOT SEEN) /HPF Ur Squamous Epith Cells (NEGATIVE) /HPF Amorphous Sediment Urine Bacteria (NEGATIVE) /HPF Urine Mucus (NEGATIVE) /LPF Urine Opiates Screen (NEAGTIVE) Ur Buprenorphine Scrn (NEGATIVE) Ur Oxycodone Screen (NEGATIVE) Ur EDDP (Meth Metab) (NEGATIVE) Urine Methadone Screen (NEGATIVE) Ur Barbiturates Screen (NEGATIVE) Ur Tricyclics Screen (NEGATIVE) Ur Phencyclidine Scrn (NEGATIVE) Ur Amphetamine Screen (NEGATIVE) U Methamphetamines Scrn (NEGATIVE) Urine MDMA Screen (NEGATIVE) U Benzodiazepines Scrn (NEGATIVE) U Cocaine Metab Screen (NEGATIVE) U Marijuana (THC) Screen (NEGATIVE) Ethyl Alcohol < 3 (0-3) mg/dL 05/02/19 05/02/19 05/02/19 Range/Units 18:59 18:59 19:04 WBC (4.0-10.0) x10^3/uL RBC (4.5-6.0) x10^6/uL Hgb (14.0-18.0) g/dL Hct (40.0-52.0) % MCV (78.0-93.0) fL MCH (26.0-32.0) pg MCHC (32.0-36.0) g/dL RDW Coeff of Shalonda (10.0-15.0) % Plt Count (130-400) x10^3/uL Add Manual Diff Neutrophils % (Manual) (50-80) % Band Neutrophils % (0-6) % Lymphocytes % (Manual) (25-50) % Monocytes % (Manual) (2-11) % Eosinophils % (Manual) (0-4) % Hypersegmented Neuts Platelet Estimate PT (10.0-12.8) SEC INR (2.0-3.5) POC ABG pH 7.275 L* (7.35-7.45) POC ABG pCO2 47 H (35-45) mmHG POC ABG pO2 40 L* (80-105) mmHG POC ABG HCO3 22 (22-26) mmol/L POC ABG Total CO2 23 (23-27) mmol/L POC ABG O2 Sat 68 L (95-98) % POC ABG Base Excess -5 L (-2-3) mmol/L POC FiO2 1.00 Sodium (136-145) mmol/L Potassium (3.5-5.1) mmol/L Chloride (98-107) mmol/L Carbon Dioxide (21-32) mmol/L Anion Gap (10-20) mmol/L BUN (7-18) mg/dL Creatinine (0.70-1.30) mg/dL Est Cr Clr Drug Dosing Estimated GFR (MDRD) Glucose (74-106) mg/dL Calcium (8.5-10.1) mg/dL Corrected Calcium (8.5-10.1) mg/dL Phosphorus (2.6-4.7) mg/dL Magnesium (1.8-2.4) mg/dL Total Bilirubin (0.2-1.0) mg/dL AST (15-37) U/L ALT (16-63) U/L Alkaline Phosphatase (46-116) U/L Troponin I (<=0.056) ng/mL C-Reactive Protein (<=0.9) mg/dL Total Protein (6.4-8.2) g/dL Albumin (3.4-5.0) g/dL Globulin Albumin/Globulin Ratio TSH, Ultra Sensitive (0.358-3.74) uIU/mL POC Result Comm Called critical res Urine Color Yellow (YELLOW) Urine Appearance Slightly cloudy H (CLEAR) Urine pH 5.0 (5.0-8.0) Ur Specific [place] 1.020 Urine Protein >=300 H (NEGATIVE) mg/dL Urine Glucose (UA) 500 H (NEGATIVE) mg/dL Urine Ketones 40 H (NEGATIVE) mg/dL Urine Occult Blood Large H (NEGATIVE) Urine Nitrite Negative (NEGATIVE) Urine Bilirubin Small H (NEGATIVE) Urine Urobilinogen 0.2 (0.2) EU/dL Ur Leukocyte Esterase Negative (NEGATIVE) Urine RBC 20-30 H (NOT SEEN) /HPF Urine WBC 0-5 (NOT SEEN) /HPF Ur Squamous Epith Cells Moderate H (NEGATIVE) /HPF Amorphous Sediment Moderate Urine Bacteria Few H (NEGATIVE) /HPF Urine Mucus Few H (NEGATIVE) /LPF Urine Opiates Screen Negative (NEAGTIVE) Ur Buprenorphine Scrn Negative (NEGATIVE) Ur Oxycodone Screen Negative (NEGATIVE) Ur EDDP (Meth Metab) Negative (NEGATIVE) Urine Methadone Screen Negative (NEGATIVE) Ur Barbiturates Screen Negative (NEGATIVE) Ur Tricyclics Screen Negative (NEGATIVE) Ur Phencyclidine Scrn Negative (NEGATIVE) Ur Amphetamine Screen Negative (NEGATIVE) U Methamphetamines Scrn Negative (NEGATIVE) Urine MDMA Screen Negative (NEGATIVE) U Benzodiazepines Scrn Negative (NEGATIVE) U Cocaine Metab Screen Negative (NEGATIVE) U Marijuana (THC) Screen Negative (NEGATIVE) Ethyl Alcohol (0-3) mg/dL Meds: Medications Generic Name Dose Route Start Last Admin Trade Name Freq PRN Reason Stop Dose Admin Sodium Chloride 10 ml 05/02/19 18:35 Saline Flush FLUSH ASDIRECTED PRN Keep Vein Open Discontinued Medications Generic Name Dose Route Start Last Admin Trade Name Freq PRN Reason Stop Dose Admin Insulin Human Regular 10 unit 05/02/19 19:08 Humulin R IVPUSH 05/02/19 19:09 ONETIME ONE Midazolam HCl Confirm 05/02/19 19:34 Versed 1 Mg/Ml Administered 05/02/19 19:35 Dose 4 mg .ROUTE .STK-MED ONE Departure - Departure Time of Disposition: 20:00 Disposition: DC/Tfer to [facility] 02 Clinical Impression: DKA (diabetic ketoacidoses), Sepsis, Respiratory failure - Discharge Information Referrals: PCP,Unknown [Primary Care Provider] - Forms: Interfacility Transfer EMTALA - Problem List Review Problem List Initiated/Reviewed/Updated: Yes - My Orders Last 24 Hours: My Active Orders 05/02/19 18:35 Sodium Chloride 0.9% [Saline Flush] 10 ml FLUSH ASDIRECTED PRN 05/02/19 18:36 Blood Culture x2 Reflex Set [OM.PC] Stat Peripheral IV Insertion Adult [OM.PC] Routine 05/02/19 18:37 CULTURE BLOOD [BC] Stat 05/02/19 18:52 CULTURE BLOOD [BC] Stat LACTIC ACID [CHEM] Stat - Assessment/Plan Last 24 Hours: My Active Orders 05/02/19 18:35 Sodium Chloride 0.9% [Saline Flush] 10 ml FLUSH ASDIRECTED PRN 05/02/19 18:36 Blood Culture x2 Reflex Set [OM.PC] Stat Peripheral IV Insertion Adult [OM.PC] Routine 05/02/19 18:37 CULTURE BLOOD [BC] Stat 05/02/19 18:52 CULTURE BLOOD [BC] Stat LACTIC ACID [CHEM] Stat Plan: Pt. was in respiratory failure and combative on arrival to ER. IV access established. Decision was made to RSI the patient. Pt. was given versed 2mg IV, succinylcholine 140mg IV. Pt. was intubated by Osmar Reno CRNA. Pt. was given another 2 mg versed and started on a propofol drip at 50mcg/kg/min. He was also given rocuronium 100mg IV after intubation. Pt. was agitated. This was increased 65mcg/kg/min and pt. was given versed in 2 mg increments. Pt. became more sedate and less combative. Pt. was started on zosyn 4.5gm IV and vancomycin 1.5mg IV. He was given regular insulin 10u IV. He received approx. 1.5 L normal saline. Heart rate decreased into the 130 range. Pt. BP at transfer was 140s/90s. Chest x-ray did not reveal any acute infiltrate. ET tube is in satisfactory position. Images were pushed to [facility] in [place]. Dr. Cook is accepting.
--- NOTE | 2019-05-03 15:15 | PCM.PRNOTE ---
- Free Text/Narrative Note: Intubation note: Was called to the emergency room for a patient who was minimally responsive, and mainly responsive to painful stimuli due to diabetic ketoacidosis. The patient is found to have spontaneous respirations with increased work of breathing respirations. SPO2 was approximately 97%.. I was requested to intubate this patient for airway maintenance and transport to [place]. Ambu and intubation equipment was assembled. Glidescope was set up and checked. Patient was Ambued with 100% O2. The patient was prepped with ChloraPrep orally. Excess was suctioned. The patient was given midazolam 2 mg IV, followed by succinylcholine 140 mg, IV. This was allowed to circulate and the patient was Ambued throughout. Visualization using a Glidescope. An 8.0 mm ID endotracheal tube was advanced using a rigid stylet. Oropharynx had heme tinged sputum noted on visualization.ET tube was pass passed through the glottic opening. The tube was held in place and the stylet was removed. The tube was advanced to 24 cm at the teeth. Balloon was inflated with 10 mL of air. End tidal CO2 was positive at 38-41 mmHg. Breath sounds or positive over of all lung oakes and negative over the epigastric area. Tube was secured with a bite block securing device. Ambu with 100% O2 was continued. Rocuronium 100 mg IV, and 4 mg midazolam IV was given. Chest x-ray was ordered and obtained showing the tube to be in good position. Report given to nursing staff.
== END 2019-05-02 20:07 | disposition short-term general hospital (02) ==
LOC: VM.ED 18:28
DX: A41.9 Sepsis, unspecified organism (principal); E11.10 Type 2 diabetes mellitus with ketoacidosis without coma; R65.20 Severe sepsis without septic shock; J96.90 Respiratory failure, unspecified, unspecified whether with hypoxia or hypercapnia; E78.00 Pure hypercholesterolemia, unspecified; I10 Essential (primary) hypertension; I25.2 Old myocardial infarction; E66.9 Obesity, unspecified; Z79.01 Long term (current) use of anticoagulants; Z79.4 Long term (current) use of insulin; Z79.899 Other long term (current) drug therapy; Z79.82 Long term (current) use of aspirin
CPT/HCPCS: 31500; 51702; 71045; 80053; 80305-QW; 80307; 81001; 82803; 83605; 83735; 84100; 84443; 84484; 85025; 85610; 86140; 86803; 87040; 87341; 87389; 99284-GF; 99285-25

== ENCOUNTER 2020-03-07 17:14 | Emergency (ER) | payer MEDICARE, MEDICAID ==
--- NOTE | 2020-03-07 18:09 | EDM.PDOC ---
ED HPI GENERAL MEDICAL PROBLEM - General Stated Complaint: POSSIBLE UTI Time Seen by Provider: 03/07/20 18:01 Source of Information: Reports: Patient History Limitations: Reports: No Limitations - History of Present Illness INITIAL COMMENTS - FREE TEXT/NARRATIVE: Patient comes emergency department today with complaints of hematuria. Urinary frequency. He relates for the past 2 days it has been difficult for him to urinate. He feels like he has to go all the time. Is quite painful when he urinates. He does not feel like he is emptying his bladder. He has no flank pain. No other abdominal pain. No fever no chills. No nausea no vomiting. He has had no recent instrumentation or procedures urologically. He does not have recurrent urinary tract infections. He has never had one in the past. No black or tarry stools. No weakness dizziness lightheadedness. No COVID symptoms no COVID exposure. Bladder Pain Score (Numeric/FACES): 10 - Related Data Allergies Allergy/AdvReac Type Severity Reaction Status Date / Time No Known Allergies Allergy Verified 05/03/19 01:09 Home Meds: Home Meds Apixaban [Eliquis] 5 mg PO BID 08/05/16 [History] Insulin Aspart [NovoLOG] 30 unit SUBCUT TIDMEALS 08/05/16 [History] Insulin Detemir [Levemir] 40 units SUBCUT Q12H 08/05/16 [History] Lisinopril 10 mg PO DAILY 08/05/16 [History] Omeprazole 20 mg PO DAILY 10/15/17 [History] Aspirin [Halfprin] 81 mg PO DAILY 12/03/18 [History] FLUoxetine HCl [Prozac] 20 mg PO DAILY 12/03/18 [History] Gabapentin [Neurontin] 300 mg PO DAILY 12/03/18 [History] Multivitamin [Daily Multiple Vitamin] 1 each PO DAILY 12/03/18 [History] Cefdinir [Omnicef] 300 mg PO BID #8 cap 03/07/20 [Rx] Phenazopyridine [Pyridium] 100 mg PO TID #6 tab 03/07/20 [Rx] Past Medical History Cardiovascular History: Reports: High Cholesterol, Hypertension, [place] Neurological History: Reports: Vertigo Endocrine/Metabolic History: Reports: Diabetes, Type II, Obesity/BMI 30+ Social & Family History - Family History Family Medical History: No Pertinent Family History - Caffeine Use Caffeine Use: Reports: Coffee, Soda - Living Situation & Occupation Living situation: Reports: Single Occupation: Disabled ED ROS GENERAL - Review of Systems Review Of Systems: Comprehensive ROS is negative, except as noted in HPI. ED EXAM, RENAL/ - Physical Exam Exam: See Below Exam Limited By: No Limitations General Appearance: Alert, WD/WN, No Apparent Distress, Obese (Rather unkept morbidly obese gentleman) Ears: Normal External Exam Nose: Normal Inspection Throat/Mouth: Normal Inspection Head: Atraumatic, Normocephalic Neck: Normal Inspection Respiratory/Chest: No Respiratory Distress, Lungs Clear, Chest Non-Tender Cardiovascular: Normal Peripheral Pulses, Regular Rate, Rhythm GI/Abdominal: Normal Bowel Sounds, Soft, Non-Tender (Male) Exam: Deferred Rectal (Males) Exam: Deferred Back Exam: Normal Inspection, Full Range of Motion. No: CVA Tenderness (L), CVA Tenderness (R) Extremities: Normal Inspection, Normal Range of Motion, No Pedal Edema, Normal Capillary Refill Neurological: Alert, Oriented, No Motor/Sensory Deficits Psychiatric: Normal Affect, Normal Mood Skin Exam: Warm, Dry, Intact, Normal Color, No Rash Course - Vital Signs Last Recorded V/S: Last Vital Signs Temp 98.2 F 03/07/20 17:15 Pulse 97 03/07/20 17:15 Resp 18 03/07/20 17:15 BP Pulse Ox 97 03/07/20 17:15 - Orders/Labs/Meds Orders: Active Orders 24 hr Category Date Time Status CULTURE URINE [RM] Stat Lab 03/07/20 18:00 Received Labs: Laboratory Tests 03/07/20 Range/Units 18:00 Urine Color Yellow (YELLOW) Urine Appearance Cloudy H (CLEAR) Urine pH 6.0 (5.0-8.0) Ur Specific [place] 1.020 Urine Protein >=300 H (NEGATIVE) mg/dL Urine Glucose (UA) 500 H (NEGATIVE) mg/dL Urine Ketones Negative (NEGATIVE) mg/dL Urine Occult Blood Moderate H (NEGATIVE) Urine Nitrite Negative (NEGATIVE) Urine Bilirubin Negative (NEGATIVE) Urine Urobilinogen 0.2 (0.2) EU/dL Ur Leukocyte Esterase Trace H (NEGATIVE) U Hyaline Cast (Auto) Few Urine RBC 10-20 H (NOT SEEN) /HPF Urine WBC 5-10 H (NOT SEEN) /HPF Ur Squamous Epith Cells Rare (NEGATIVE) /HPF Ur Renal Epithelial Cell Moderate H (NEGATIVE) /HPF Urine Bacteria Not seen (NEGATIVE) /HPF Urine Mucus Rare H (NEGATIVE) /LPF Meds: Medications Discontinued Medications Generic Name Dose Route Start Last Admin Trade Name Dipak PRN Reason Stop Dose Admin Cefdinir 300 mg 03/07/20 18:31 03/07/20 18:42 Omnicef PO 03/07/20 18:32 300 mg ONETIME ONE Administration Cefdinir 600 mg 03/07/20 18:45 03/07/20 19:00 Omnicef PO 03/07/20 18:46 600 mg ONETIME ONE Administration Phenazopyridine HCl 95 mg 03/07/20 18:29 03/07/20 18:43 Urinary Pain Relief PO 03/07/20 18:30 95 mg NOW STA Administration Phenazopyridine HCl 1 packet 03/07/20 18:47 03/07/20 19:00 Take Home: Phenazopyridine, 4 Tab Pack .XX 03/07/20 18:48 1 packet ONETIME ONE Administration - Re-Assessments/Exams Free Text/Narrative Re-Assessment/Exam: 03/07/20 Urinalysis is clearly infectious. Positive leukocyte Estrace. Is also WBCs 510 So has quite a bit of proteinuria and glucose in his urine and reviewing his chart and [facility] he has quite high microalbumin due to his chronic poorly controlled diabetes. Culture pending Pyridium orally and cefdinir. We talked at length about the importance of controlling his blood sugars. Adherence to antibiotics. Anything new or worse especially fever chills nausea vomiting he is to recheck. He is comfortable with this plan and his questions are answered.. Departure - Departure Time of Disposition: 18:31 Disposition: Home, Self-Care Clinical Impression: Proteinuria due to type 2 diabetes mellitus UTI (urinary tract infection) Qualifiers: Urinary tract infection type: site unspecified Hematuria presence: with hematuria Qualified Code(s): N39.0 - Urinary tract infection, site not specified - Discharge Information Prescriptions: Cefdinir [Omnicef] 300 mg PO BID #8 cap Phenazopyridine [Pyridium] 100 mg PO TID #6 tab Instructions: Antibiotic Medicine, Adult, [id number], Urinary Tract Infection, Adult, [id number], Type 2 Diabetes Mellitus, Self Care, Adult, [id number] Referrals: Stefanie Kumar PHARMACY INTERN [Primary Care Provider] - Forms: ED Department Discharge Additional Instructions: Drink plenty of fluids over the next few days. Tylenol as needed for pain. Pyridium 1 tablet three times a day for the next 3 days for painful frequent urination. Rx to [facility]. Cefdinir, 1 capsule twice daily for the next 5 days. First dose given in the ED. Take home pack given for tomorrow and Rx to [facility]. Return to the ED if new or worsening symptoms. Follow up with PCP in the next 4-6 days if not improving sooner if worse. Sepsis Event Note (ED) - Focused Exam Vital Signs: Vital Signs Temp Pulse Resp Pulse Ox 03/07/20 17:15 98.2 F 97 18 97 - My Orders Last 24 Hours: My Active Orders 03/07/20 18:00 CULTURE URINE [RM] Stat - Assessment/Plan Last 24 Hours: My Active Orders 03/07/20 18:00 CULTURE URINE [RM] Stat
[2020-03-07 18:22] VITALS: PULSE 97
[2020-03-07] MEDS ORDERED: Phenazopyridine 95 MG Tab PO STA (18:29)
[2020-03-07] MEDS ORDERED: Cefdinir 300 MG Cap PO ONE ×2 (18:31→18:45)
[2020-03-07] MEDS ORDERED: Take Home: Phenazopyridine 95 MG Tab, 4 Tab Pack ONE (18:47)
== END 2020-03-07 19:03 | disposition home or self-care (01) ==
LOC: VM.ED 17:14
DX: N39.0 Urinary tract infection, site not specified (principal); R31.9 Hematuria, unspecified; E11.29 Type 2 diabetes mellitus with other diabetic kidney complication; R80.9 Proteinuria, unspecified; I10 Essential (primary) hypertension; E66.9 Obesity, unspecified; Z79.01 Long term (current) use of anticoagulants; Z79.4 Long term (current) use of insulin; Z79.82 Long term (current) use of aspirin; Z79.899 Other long term (current) drug therapy
CPT/HCPCS: 81001; 87086; 87088; 99283; 99284; A9270-GY

== ENCOUNTER 2021-03-03 16:41 | Emergency (ER) | payer MEDICARE, MEDICAID ==
[2021-03-03 16:56] VITALS: BP 133/76; PULSE 92
[2021-03-03] MEDS ORDERED: Sodium Chloride 0.9% 10 ML Syringe FLUSH PRN (17:11)
[2021-03-03 18:24] LABS: PTT,PARTIAL THROMBOPLSTIN TIME 28.4 SEC (25.6-32.8)
[2021-03-03 18:27] LABS: CHLORIDE,CL 110 mmol/L (98-107); SODIUM,NA 143 mmol/L (136-145)
[2021-03-03 18:28] LABS: ANION GAP 13.8 mmol/L (5-15)
[2021-03-03 18:56] LABS: CORONAVIRUS COVID-19 NAA NEGATIVE (NEGATIVE)
== END 2021-03-03 18:56 | disposition home or self-care (01) ==
LOC: VM.ED 16:41
DX: T81.31XA Disruption of external operation (surgical) wound, not elsewhere classified, initial encounter (principal); E11.22 Type 2 diabetes mellitus with diabetic chronic kidney disease; N18.4 Chronic kidney disease, stage 4 (severe); D63.1 Anemia in chronic kidney disease; E11.628 Type 2 diabetes mellitus with other skin complications; L08.9 Local infection of the skin and subcutaneous tissue, unspecified; E78.00 Pure hypercholesterolemia, unspecified; I10 Essential (primary) hypertension; I25.2 Old myocardial infarction; D68.9 Coagulation defect, unspecified; E66.9 Obesity, unspecified; Z68.30 Body mass index [BMI] 30.0-30.9, adult; Z79.01 Long term (current) use of anticoagulants; Z79.4 Long term (current) use of insulin; Z79.82 Long term (current) use of aspirin; Z20.822 Contact with and (suspected) exposure to COVID-19
CPT/HCPCS: 0240U; 36415; 80053; 83605; 84145; 85025; 85610; 85730; 86140; 87040; 99284

== ENCOUNTER 2021-09-06 20:57 | Observation (INO) | payer MEDICARE, MEDICAID ==
[2021-09-06] MEDS ORDERED: Sodium Chloride 0.9% 10 ML Syringe FLUSH PRN (21:13)
[2021-09-06] MEDS ORDERED: Sodium Chloride 0.9% 1,000 ML IV ONE (21:15)
[2021-09-06] MEDS ORDERED: Acetaminophen 500 MG Tab PO ONE (21:16)
[2021-09-06] MEDS ORDERED: Ondansetron 4 MG/2 ML SDV ONE (21:25)
[2021-09-06 21:58] LABS: PTT,PARTIAL THROMBOPLSTIN TIME 35.9 SEC (20.5-30.9)
[2021-09-06 22:09] LABS: CHLORIDE,CL 104 mmol/L (98-107); SODIUM,NA 137 mmol/L (136-145)
[2021-09-06 22:15] LABS: ANION GAP 13.6 mmol/L (5-15); ESTIMATED GFR 18 mL/min (>=60)
[2021-09-06 22:25] LABS: CORONAVIRUS COVID-19 NAA NEGATIVE (NEGATIVE); RESPIRATORY SYNCYTIAL VIR NAA NEGATIVE (NEGATIVE)
[2021-09-06] MEDS ORDERED: VANCOmycin 2 GM/400 ML 2 GM in Premix Bag 1 BAG IV ONE (22:37)
[2021-09-06] MEDS ORDERED: HYDROmorphone 0.5 MG/0.5 ML Syringe IVPUSH ONE (22:52)
[2021-09-06] MEDS: Piperacillin/Tazobactam 2.25 GM in Sodium Chloride 0.9% 100 ML IV SCH (23:10)
[2021-09-06] MEDS ORDERED: HYDROmorphone 1 MG/ML Syringe IVPUSH PRN (23:12)
[2021-09-06] MEDS ORDERED: Lactated Ringers 1,000 ML IV ONE (23:14)
[2021-09-06] MEDS ORDERED: Ondansetron 4 MG/2 ML SDV IVPUSH ONE (23:36)
[2021-09-06] MEDS ORDERED: Sodium Chloride 0.9% 1,000 ML IV SCH (23:45)
[2021-09-07] MEDS ORDERED: Acetaminophen 500 MG Tab PO PRN (00:12)
[2021-09-07] MEDS ORDERED: Lactated Ringers 1,000 ML IV ONE (00:14)
[2021-09-07] MEDS ORDERED: Metoclopramide 10 MG/2 ML SDV IVPUSH PRN (00:45)
[2021-09-07] MEDS ORDERED: Ondansetron 4 MG/2 ML SDV IVPUSH PRN (00:46)
[2021-09-07] MEDS ORDERED: HYDROmorphone 0.5 MG/0.5 ML Syringe IVPUSH PRN (00:47)
[2021-09-07] MEDS: Piperacillin/Tazobactam 2.25 GM in Sodium Chloride 0.9% 100 ML IV SCH ×3 (04:51→16:45)
[2021-09-07 07:26] LABS: ANION GAP 15.5 mmol/L (5-15)
[2021-09-07] MEDS ORDERED: Acetaminophen 325 MG Tab PO PRN (07:31)
[2021-09-07] MEDS ORDERED: Polyethylene Glycol 3350 Powder 17 GM Packet PO PRN (07:31)
[2021-09-07] MEDS ORDERED: Bisacodyl 5 MG Tab PO PRN (07:31)
[2021-09-07] MEDS ORDERED: oxyCODONE 5 MG Tab PO PRN (07:31)
[2021-09-07] MEDS: Insulin Lispro 100 Units/ML 3 ML Vial SUBCUT SCH ×2 (08:58→12:47)
[2021-09-07] MEDS: hydrALAZINE 25 MG Tab PO SCH ×2 (08:59→12:47)
[2021-09-07] MEDS ORDERED: Bumetanide 1 MG Tab PO SCH ×2 (09:00)
[2021-09-07] MEDS ORDERED: Isosorbide Mononitrate 60 MG Tab.ER PO SCH (09:00)
[2021-09-07] MEDS ORDERED: Insulin Glarg,Human.Rec.Analog 100 Unit/ML SUBCUT SCH (09:00)
[2021-09-07] MEDS ORDERED: Losartan 25 MG Tab PO SCH (09:00)
[2021-09-07] MEDS: valACYclovir 1,000 MG Tab PO SCH ×2 (09:00→12:46)
[2021-09-07] MEDS ORDERED: buPROPion 150 MG Tab.ER PO SCH (09:00)
[2021-09-07] MEDS ORDERED: Ferrous Sulfate 325 MG Tab PO SCH (09:00)
[2021-09-07] MEDS ORDERED: Cholecalciferol (Vitamin D3) 5,000 UNIT Tab PO SCH (09:00)
[2021-09-07] MEDS ORDERED: Multivitamins with Iron/Calcium/Folic Acid/Minerals Tab PO SCH (09:00)
[2021-09-07] MEDS ORDERED: Aspirin 81 MG Tab.EC PO SCH (09:00)
[2021-09-07] MEDS ORDERED: Rosuvastatin 20 MG Tab PO SCH (09:00)
[2021-09-07] MEDS: Bumetanide 1 MG Tab PO SCH ×2 (12:47→13:43)
[2021-09-07 17:23] VITALS: BP 159/75; PULSE 71
[2021-09-07] MEDS ORDERED: Warfarin 5 MG Tab PO SCH (20:00)
[2021-09-08] MEDS ORDERED: Pantoprazole 40 MG Tab.CR PO SCH (07:00)
[2021-09-08] MEDS ORDERED: Chlorthalidone 25 MG Tab PO SCH (09:00)
== END 2021-09-07 18:38 | disposition short-term general hospital (02) ==
LOC: VM.ED 20:57 → VM.MS 23:03
PROVIDERS: ADMIT Physician Assistant; ATTEND Physician Assistant
DX: N17.9 Acute kidney failure, unspecified (principal); I12.9 Hypertensive chronic kidney disease with stage 1 through stage 4 chronic kidney disease, or unspecified chronic kidney disease; E11.22 Type 2 diabetes mellitus with diabetic chronic kidney disease; N18.4 Chronic kidney disease, stage 4 (severe); A41.9 Sepsis, unspecified organism; E11.621 Type 2 diabetes mellitus with foot ulcer; L97.512 Non-pressure chronic ulcer of other part of right foot with fat layer exposed; E78.00 Pure hypercholesterolemia, unspecified; I10 Essential (primary) hypertension; I25.2 Old myocardial infarction; E66.9 Obesity, unspecified; Z79.4 Long term (current) use of insulin; Z79.899 Other long term (current) drug therapy; Z79.82 Long term (current) use of aspirin; Z20.822 Contact with and (suspected) exposure to COVID-19; Z68.43 Body mass index [BMI] 50.0-59.9, adult
CPT/HCPCS: 0241U; 36415; 71045; 80053; 80202; 81001; 82947; 83605; 83735; 83880; 84100; 84145; 84484; 85025; 85610; 85730; 86140; 87040; 87070; 87077; 87186; 93005; 93010; 94760; 96361; 96365; 96366; 96367; 96375; 96376; 99217; 99220; 99285-25; A9270-GY; G0378; J1170; J1815-GY; J2405; J2543; J3370; J7030; J7120